=== PATIENT | female | born 1985 | race Asian ===

== ENCOUNTER 2016-06-24 17:15 | Inpatient (IN) | payer SELFPAY ==
[~2016-06-24] VITALS: Ht 168 cm; Wt 72.6 kg
[2016-06-24] MEDS ORDERED: ACETAMINOPHEN 325 MG TAB PO PRN (17:40)
[2016-06-24] MEDS ORDERED: BETAMETH ACET/BETAMETH NA PH 30 MG/5 ML VIAL IM ONE (18:03)
[2016-06-24] MEDS ORDERED: AMPICILLIN 2,000 MG VIAL ONE (18:03)
[2016-06-24] MEDS ORDERED: ACETAMINOPHEN 325 MG TAB ONE (18:03)
[2016-06-24] MEDS: BETAMETH ACET/BETAMETH NA PH 30 MG/5 ML VIAL IM SCH (18:10)
[2016-06-24] MEDS: LACTATED RINGERS 1,000 ML IV SCH (18:15)
[2016-06-24] MEDS: AMPICILLIN 2,000 MG in NACL 0.9% 100 ML IV SCH (18:16)
[2016-06-24] MEDS ORDERED: NIFEdipine 10 MG CAPLF ONE ×4 (18:45→22:52)
[2016-06-24] MEDS ORDERED: NIFEdipine 10 MG CAPLF PO SCH ×2 (18:45→23:30)
[2016-06-24 18:56] VITALS: BP 116/71
[2016-06-24] MEDS ORDERED: AMPICILLIN 1,000 MG VIAL ONE (21:46)
[2016-06-25] MEDS ORDERED: AMPICILLIN 2,000 MG VIAL ONE ×2 (01:36→06:11)
[2016-06-25] MEDS: AMPICILLIN 2,000 MG in NACL 0.9% 100 ML IV SCH (01:47)
[2016-06-25] MEDS ORDERED: BETAMETH ACET/BETAMETH NA PH 30 MG/5 ML VIAL IM ONE (06:10)
[2016-06-25] MEDS: BETAMETH ACET/BETAMETH NA PH 30 MG/5 ML VIAL IM SCH (06:15)
[2016-06-25] MEDS ORDERED: TERBUTALINE 1 MG/ML VIAL SUBQ ONE (08:05)
[2016-06-25] MEDS: LACTATED RINGERS 1,000 ML IV SCH (08:15)
--- NOTE | 2016-06-25 08:34 | NUR ---
PATIENT HAS BEEN SCREENED AND CATEGORIZED LOW NUTRITION RISK. PATIENT WILL BE SEEN WITHIN 7 DAYS OF ADMISSION. 07/01/[address]
== END 2016-06-25 10:20 | disposition home or self-care (01) | DRG 782 ==
LOC: MLD 17:15 → OBSVTOIN 17:44 → MLD 17:48
PROVIDERS: ADMIT Obstetrics & Gynecology; ATTEND Obstetrics & Gynecology
DX: O76 Abnormality in fetal heart rate and rhythm complicating labor and delivery (principal); O75.2 Pyrexia during labor, not elsewhere classified; Z3A.34 34 weeks gestation of pregnancy
CPT/HCPCS: G0378; J0290; J0702; J3105; J7120

== ENCOUNTER 2016-08-12 10:10 | Inpatient (IN) | payer SELFPAY ==
[~2016-08-12] VITALS: Ht 172.7 cm; Wt 72.1 kg
[2016-08-12] MEDS ORDERED: FERR325E14 PO (10:36)
[2016-08-12] MEDS ORDERED: LACTATED RINGERS 1,000 ML IV SCH (10:36)
[2016-08-12] MEDS ORDERED: METHYLERGONOVINE 0.2 MG/ML AMP IM PRN ×2 (10:40→22:00)
[2016-08-12] MEDS ORDERED: PROMETHAZINE 25 MG/ML VIAL IVP PRN (10:40)
[2016-08-12] MEDS ORDERED: CARBOPROST 250 MCG/ML AMP IM PRN (10:40)
[2016-08-12] MEDS ORDERED: OXYTOCIN 10 UNITS/ML VIAL IM SCH (10:40)
[2016-08-12 11:17] VITALS: BP 133/83
[2016-08-12 11:18] LABS: BASOPHILS # (AUTO) 0.1 K/uL (0.00-0.22); BASOPHILS % (AUTO) 1.1 % (0.0-2.0); EOSINOPHILS # (AUTO) 0.1 K/uL (0-0.4); EOSINOPHILS % (AUTO) 1.6 % (0.0-4.0); HEMATOCRIT 38.6 % (36-48); HEMOGLOBIN 12.6 g/dL (12.0-16.0); LYMPHOCYTES # (AUTO) 1.5 K/uL (2.5-16.5); LYMPHOCYTES % (AUTO) 20.8 % (20.5-51.1); MEAN CORPUSCULAR HEMOGLOBIN 27 pg (27-31); MEAN CORPUSCULAR HGB CONC 33 g/dL (33-37); MEAN CORPUSCULAR VOLUME 81 fL (80-94); MONOCYTES # (AUTO) 0.5 K/uL (0.8-1.0); MONOCYTES % (AUTO) 7.2 % (1.7-9.3); NEUTROPHILS # (AUTO) 4.9 K/uL (1.8-7.7); NEUTROPHILS % (AUTO) 69.3 % (42.2-75.2); PLATELET COUNT (AUTO) 222 K/uL (140-450); RED BLOOD CELL COUNT(AUTO) 4.75 MIL/uL (4.20-5.40); RED CELL DISTRIBUTION WIDTH 15.4 % (11.6-13.7); WHITE BLOOD COUNT (AUTO) 7.1 K/uL (4.8-10.8)
[2016-08-12 11:22] LABS: BILIRUBIN,URINE NEGATIVE (NEGATIVE); BLOOD, URINE NEGATIVE (NEGATIVE); COLOR,URINE YELLOW (YELLOW); LEUKOCYTE ESTERASE ,URINE 2+ (NEGATIVE); NITRITE, URINE POSITIVE (NEGATIVE); PH,URINE 6.5 (5.0-9.0); PROTEIN,URINE NEGATIVE (NEGATIVE); UGLUCOSE NEGATIVE (NEGATIVE); UROBILINOGEN,URINE 0.2 EU/dL (0.2 - 1)
[2016-08-12 11:52] LABS: APPEARANCE,URINE HAZY (CLEAR)
[2016-08-12 11:53] LABS: HIV RAPID SCREEN NON-REACTIVE (NON REACTIV)
[2016-08-12 11:55] LABS: RBC,URINE 0-5 (RARE) /HPF (0-5); WBC,URINE 20-60 /HPF (0-5)
[2016-08-12 11:56] LABS: BACTERIA,URINE 4+ /HPF (None Seen); SQUAMOUS EPITHELIAL CELL,UR 20-50 /LPF (0-3 (FEW))
[2016-08-12 12:52] LABS: RAPID PLASMA REAGIN NON-REACTIVE (Non Reactiv)
[2016-08-12 12:54] LABS: ANION GAP 17.4 (8-16); CALCIUM 8.7 mg/dL (8.5-10.1); CARBON DIOXIDE 19.5 mmol/L (21-32); CREATININE 0.6 mg/dL (0.6-1.3); POTASSIUM 3.9 mmol/L (3.5-5.1); TOTAL BILIRUBIN 0.6 mg/dL (0.0-1.0); TOTAL PROTEIN, SERUM 7.2 g/dL (6.4-8.2)
[2016-08-12] MEDS ORDERED: OXYTOCIN 10 UNITS/ML VIAL ONE ×2 (13:18→13:40)
[2016-08-12] MEDS ORDERED: TRIAMCINOLONE 40 MG/ML 5ML VIAL ONE (13:18)
[2016-08-12] MEDS ORDERED: METHYLERGONOVINE 0.2 MG/ML AMP ONE ×2 (13:40→14:12)
[2016-08-12] MEDS ORDERED: ONDANSETRON 4 MG/2 ML VIAL ONE (13:40)
[2016-08-12] MEDS ORDERED: BUPIVACAINE-MPF 0.75% 10 ML VIAL INJ ONE (13:40)
[2016-08-12] MEDS ORDERED: MIDAZOLAM 2 MG/2 ML VIAL ONE (13:47)
[2016-08-12] MEDS ORDERED: MORPHINE PRES FREE 10 MG/10 ML AMP IV ONE (13:48)
[2016-08-12] MEDS ORDERED: OXYTOCIN 20 UNITS/LR PREMIX 1,000 ML IV SCH ×3 (14:18→21:56)
[2016-08-12] MEDS ORDERED: HYDROmorphone 1 MG/ML AMP IVP PRN (14:20)
[2016-08-12] MEDS ORDERED: NALBUPHINE 10 MG/ML AMP IVP PRN (14:20)
[2016-08-12] MEDS ORDERED: NALOXONE 0.4 MG/ML VIAL IVP PRN ×3 (14:20)
[2016-08-12] MEDS ORDERED: MEPERIDINE 25 MG/ML SYR IVP PRN (14:20)
[2016-08-12] MEDS ORDERED: ONDANSETRON 4 MG/2 ML VIAL IVP PRN (14:20)
[2016-08-12] MEDS ORDERED: diphenhydrAMINE 50 MG/ML VIAL IVP PRN ×2 (14:20)
[2016-08-12] MEDS ORDERED: OXYTOCIN 20 UNITS/LR PREMIX 1,000 ML IV ONE ×2 (14:29→15:34)
[2016-08-12] MEDS ORDERED: diphenhydrAMINE 50 MG/ML VIAL ONE (14:29)
[2016-08-12] MEDS: ONDANSETRON 4 MG/2 ML VIAL IVP PRN ×2 (16:14→21:19)
[2016-08-12] MEDS: KETOROLAC 30 MG/ML VIAL IM/IVP SCH (18:00)
[2016-08-12] MEDS ORDERED: SIMETHICONE 80 MG TAB.CHEW PO PRN (22:00)
[2016-08-12] MEDS ORDERED: TEMAZEPAM 15 MG CAP PO PRN (22:00)
[2016-08-12] MEDS ORDERED: oxyCODONE/APAP 5/325 MG 1 TAB TAB PO PRN (22:00)
[2016-08-12] MEDS ORDERED: TRIMETHOBENZAMIDE 200 MG/2 ML SYR IM PRN (22:00)
[2016-08-13] MEDS: KETOROLAC 30 MG/ML VIAL IM/IVP SCH ×3 (06:00→10:04)
[2016-08-13 06:24] LABS: HEMATOCRIT 32.4 % (36-48); HEMOGLOBIN 10.4 g/dL (12.0-16.0); MEAN CORPUSCULAR HEMOGLOBIN 26 pg (27-31); MEAN CORPUSCULAR HGB CONC 32 g/dL (33-37); MEAN CORPUSCULAR VOLUME 81 fL (80-94); PLATELET COUNT (AUTO) 193 K/uL (140-450); RED BLOOD CELL COUNT(AUTO) 4.01 MIL/uL (4.20-5.40); RED CELL DISTRIBUTION WIDTH 15.6 % (11.6-13.7); WHITE BLOOD COUNT (AUTO) 16.3 K/uL (4.8-10.8)
[2016-08-13 07:09] LABS: BAND % (MANUAL) 4 % (0-8); LYMPHOCYTES % (MANUAL) 5 % (20-46); MONOCYTES % (MANUAL) 4 % (5-12); NEUTROPHILS % (MANUAL) 87 (43-65); PLATELET ESTIMATE ADEQUATE
--- NOTE | 2016-08-13 08:00 | NUR ---
PATIENT HAS BEEN SCREENED AND CATEGORIZED LOW NUTRITION RISK. PATIENT WILL BE SEEN WITHIN 7 DAYS OF ADMISSION. 08/19/[address]
[2016-08-13] MEDS ORDERED: IBUPROFEN 800 MG TAB PO PRN (08:05)
[2016-08-13] MEDS ORDERED: MEASLES, MUMPS, AND RUBELLA 1 VIAL SQVAC PRN (14:05)
[2016-08-13] MEDS: HYDROcodone/APAP 5/325 MG 1 TAB TAB PO PRN (15:36)
[2016-08-13] MEDS: DOCUSATE SOD/SENNA 50/8.6 MG 1 TAB PO SCH (20:58)
[2016-08-14] MEDS: HYDROcodone/APAP 5/325 MG 1 TAB TAB PO PRN ×2 (00:32→12:42)
[2016-08-14] MEDS ORDERED: HYDROcodone/APAP 5/325 MG 1 TAB TAB ONE (00:32)
[2016-08-14] MEDS ORDERED: IBUPROFEN 800 MG TAB PO PRN (12:51)
[2016-08-14] MEDS: CEPHALEXIN 500 MG CAP PO SCH (17:45)
[2016-08-14] MEDS ORDERED: CEPHALEXIN SUSP. 250 MG/5 ML PO SCH (18:00)
[2016-08-14] MEDS: DOCUSATE SOD/SENNA 50/8.6 MG 1 TAB PO SCH (21:07)
[2016-08-15] MEDS: CEPHALEXIN 500 MG CAP PO SCH ×4 (01:20→19:15)
[2016-08-15] MEDS: HYDROcodone/APAP 5/325 MG 1 TAB TAB PO PRN ×2 (08:42→20:00)
[2016-08-15] MEDS: DOCUSATE SOD/SENNA 50/8.6 MG 1 TAB PO SCH (20:36)
[2016-08-16] MEDS: CEPHALEXIN 500 MG CAP PO SCH ×2 (00:02→06:00)
== END 2016-08-16 11:30 | disposition home or self-care (01) | DRG 766 ==
LOC: MFCC 10:10
PROVIDERS: ADMIT Obstetrics & Gynecology; ATTEND Obstetrics & Gynecology
PROC: 10D00Z1 Extraction of Products of Conception, Low, Open Approach (ICD-10-PCS; principal; 2016-08-12 13:30)
PROC: 3E0234Z Introduction of Serum, Toxoid and Vaccine into Muscle, Percutaneous Approach (ICD-10-PCS; 2016-08-13)
DX: O24.429 Gestational diabetes mellitus in childbirth, unspecified control (principal); O36.63X0 Maternal care for excessive fetal growth, third trimester, not applicable or unspecified; Z3A.39 39 weeks gestation of pregnancy; Z37.0 Single live birth; Z23 Encounter for immunization
CPT/HCPCS: 36415; 51702; 80053; 81001; 85025; 86592; 86886; 86900; 86901; 87086; 87186; 90715; J0690; J1200; J1885; J2210; J2250; J2270; J2405; J2590; J3301; J3490; J7060; J7120